=== PATIENT | female | born 1980 ===

== ENCOUNTER 2017-04-17 21:51 | Emergency (ER) | payer BC, OTHER ==
[2017-04-17 22:13] VITALS: PULSE 69; RESP 20; TEMP 97.9; O2SAT 99
[2017-04-17 22:58] VITALS: BP 118/77
--- NOTE | 2017-04-17 23:21 | C.PDOC ---
History Of Present Illness 37 year old female presents to the ER with a complaint of lower back pain since yesterday that radiates to the groin and lower abdomen. Patient reports taken tylenol and advil at home. Denies hematuria, dysuria, bladder or bowel incontinence, weakness, numbness, or trauma. Time Seen by Provider: 04/17/17 22:16 Chief Complaint (Nursing): Back Pain History Per: Patient History/Exam Limitations: no limitations Onset/Duration Of Symptoms: Days Current Symptoms Are (Timing): Still Present Quality Of Discomfort: Unable To Describe Previous Symptoms: None Associated Symptoms: None Exacerbating Factor(s): Nothing Recent travel outside of the [place]: No Past Medical History Reviewed: Historical Data, Nursing Documentation, Vital Signs Vital Signs: Last Vital Signs Temp 97.9 F 04/17/17 22:04 Pulse 69 04/17/17 22:04 Resp 20 04/17/17 22:04 BP 118/77 04/17/17 22:47 Pulse Ox 99 04/18/17 00:59 - Medical History PMH: Anemia Family History: States: Unknown Family Hx - Social History Hx Alcohol Use: No Hx Substance Use: No - Immunization History Hx Tetanus Toxoid Vaccination: No Hx Influenza Vaccination: No Hx Pneumococcal Vaccination: No Review Of Systems Constitutional: Negative for: Fever, Chills Gastrointestinal: Positive for: Abdominal Pain Genitourinary: Positive for: Other (Groin pain). Negative for: Dysuria, Incontinence, Hematuria Musculoskeletal: Positive for: Back Pain Neurological: Negative for: Weakness, Numbness Physical Exam - Physical Exam Appears: Non-toxic, Other (Morbidly obese) Skin: Normal Color, Warm, Dry Head: Atraumatic, Normacephalic Eye(s): bilateral: Normal Inspection Gastrointestinal/Abdominal: Soft, No Tenderness Back: No CVA Tenderness, No Vertebral Tenderness, Paraspinal Tenderness (Lumbar) , Straight Leg Raising (Positive at 40 degrees worse on right) Extremity: Normal ROM (x4) Neurological/Psych: Oriented x3, Normal Speech, Normal Motor, Normal Sensation Gait: Steady ED Course And Treatment O2 Sat by Pulse Oximetry: 99 (room air) Pulse Ox Interpretation: Normal Progress Note: Toradol and flexeril administered. Patient reports improvement of pain, she is ambulatory in the ER without any pain or discomfort, will discharge home with instructions to follow up with PMD or return if symptoms worsen. Disposition Counseled Patient/Family Regarding: Diagnosis, Need For Followup, Rx Given - Disposition Referrals: [facility] [Outside] Disposition: HOME/ ROUTINE Disposition Time: 23:17 Condition: STABLE Additional Instructions: Please follow up with PMD or in clinic Take meds as directed Return to ER if worse Prescriptions: Cyclobenzaprine [Cyclobenzaprine HCl] 10 mg PO BID #14 tab Naproxen [Naprosyn] 1 tab PO BID PRN #20 tab PRN Reason: Pain Instructions: Low Back Pain (DC) Forms: [email or web address] (Bengali), Work Excuse - Clinical Impression Clinical Impression: Low back pain - PA / RESIDENT DIRECTOR / Resident Statement MD/DO has reviewed & agrees with the documentation as recorded. - Scribe Statement The provider has reviewed the documentation as recorded by the Scribromie Gonzalez All medical record entries made by the Ginna were at my direction and personally dictated by me. I have reviewed the chart and agree that the record accurately reflects my personal performance of the history, physical exam, medical decision making, and the department course for this patient. I have also personally directed, reviewed, and agree with the discharge instructions and disposition.
== END 2017-04-17 23:29 | disposition home or self-care (01) ==
LOC: C.ER 21:51
DX: M54.5 Low back pain (principal)
CPT/HCPCS: 96372; 99282; J1885

== ENCOUNTER 2017-04-28 10:35 | Emergency (ER) | payer OTHER ==
[2017-04-28 10:45] VITALS: RESP 18; O2SAT 98
[2017-04-28 12:09] LABS: SQUAMOUS EPITHIAL 19 /hpf (0-5); URINE BACTERIA RARE (<OCC); URINE BILIRUBIN NEGATIVE (NEGATIVE); URINE BLOOD NEGATIVE (NEGATIVE); URINE CLARITY Hazy (Clear); URINE COLOR Yellow (YELLOW); URINE GLUCOSE (UA) NORMAL (Normal); URINE LEUKOCYTE ESTERASE 1+ Leu/uL (Negative); URINE PROTEIN NEGATIVE (NEGATIVE); URINE UROBILINOGEN NORMAL mg/dL (0.2-1.0)
--- NOTE | 2017-04-28 12:17 | C.PDOC ---
History Of Present Illness 37 year old female presents to the ER with a complaint of back pain. Patient was seen on 04/17/17 for the same complaints, she was started on Flexeril and Naproxen with improvement, however, today while she notes she went to the bathroom and the pain recurred. Denies weakness, numbness, or trauma. Time Seen by Provider: 04/28/17 11:08 Chief Complaint (Nursing): Back Pain History Per: Patient History/Exam Limitations: no limitations Onset/Duration Of Symptoms: Days Current Symptoms Are (Timing): Still Present Quality Of Discomfort: Unable To Describe Associated Symptoms: None Exacerbating Factor(s): Nothing Recent travel outside of the [place]: No Past Medical History Reviewed: Historical Data, Nursing Documentation, Vital Signs Vital Signs: Last Vital Signs Temp 97.7 F 04/28/17 10:41 Pulse 82 04/28/17 10:41 Resp 18 04/28/17 10:41 BP 131/82 04/28/17 10:41 Pulse Ox 98 04/28/17 12:23 - Medical History PMH: Anemia Family History: States: Unknown Family Hx - Social History Hx Alcohol Use: No Hx Substance Use: No - Immunization History Hx Tetanus Toxoid Vaccination: No Hx Influenza Vaccination: No Hx Pneumococcal Vaccination: No Review Of Systems Except As Marked, All Systems Reviewed And Found Negative. Musculoskeletal: Positive for: Back Pain Neurological: Negative for: Weakness, Numbness Physical Exam - Physical Exam Appears: Non-toxic, No Acute Distress Skin: Normal Color, Warm, Dry Head: Atraumatic, Normacephalic Eye(s): bilateral: Normal Inspection Back: No CVA Tenderness, No Vertebral Tenderness, No Paraspinal Tenderness Extremity: Normal ROM (x4), No Tenderness, No Deformity Neurological/Psych: Oriented x3, Normal Speech, Normal Motor, Normal Sensation Gait: Steady ED Course And Treatment O2 Sat by Pulse Oximetry: 98 (Room air) Pulse Ox Interpretation: Normal Medical Decision Making Medical Decision Making: Plan: * Urinalysis Disposition Counseled Patient/Family Regarding: Studies Performed, Diagnosis, Need For Followup, Rx Given - Disposition Referrals: YOUR,PMD [Other] Disposition: HOME/ ROUTINE Disposition Time: 12:24 Condition: IMPROVED Prescriptions: Cyclobenzaprine [Flexeril] 10 mg PO TID #15 tab Dexamethasone 12 mg PO ONCE #2 tablet Gabapentin [Neurontin] 300 mg PO TID #30 cap Instructions: Radiculopathy, Sciatica Exercises Forms: [employer] (Central African), School Excuse - Clinical Impression Clinical Impression: Sciatica - Scribe Statement The provider has reviewed the documentation as recorded by the Scribromie Gonzalez All medical record entries made by the Scribe were at my direction and personally dictated by me. I have reviewed the chart and agree that the record accurately reflects my personal performance of the history, physical exam, medical decision making, and the department course for this patient. I have also personally directed, reviewed, and agree with the discharge instructions and disposition.
[2017-04-28 12:37] VITALS: BP 126/85; PULSE 65; TEMP 98.3
== END 2017-04-28 12:37 | disposition home or self-care (01) ==
LOC: C.ER 10:35
DX: M54.30 Sciatica, unspecified side (principal)

== ENCOUNTER 2017-07-09 12:23 | Emergency (ER) | payer OTHER ==
[2017-07-09 12:38] VITALS: TEMP 98.3
[2017-07-09 13:56] LABS: BASO # 0.1 K/uL (0.0-0.2); EOS # 0.1 K/uL (0.0-0.7); EOS % 1.2 % (0.0-4.0); HEMOGLOBIN 13.2 g/dL (11.0-16.0); LYMPH # 3.1 K/uL (1.0-4.3); MEAN CELL VOLUME 80.3 fL (81.0-99.0); MEAN CORPUSCULAR HEMOGLOBIN 27.3 pg (27.0-31.0); MEAN PLATELET VOLUME 7.9 fL (7.2-11.7); MONO # 0.8 K/uL (0.0-0.8); NEUT # 5.6 K/uL (1.8-7.0); NEUT % 57.8 % (50.0-75.0); NRBC % 0.1 % (0.0-2.0); RBC 4.85 Mil/uL (3.80-5.20); RED CELL DISTRIBUTION WIDTH 15.4 % (11.5-14.5); WHITE BLOOD COUNT 9.7 K/uL (4.8-10.8)
[2017-07-09 14:01] LABS: SQUAMOUS EPITHIAL 5 /hpf (0-5); URINE BILIRUBIN NEGATIVE (NEGATIVE); URINE BLOOD NEGATIVE (NEGATIVE); URINE CLARITY Clear (Clear); URINE COLOR Yellow (YELLOW); URINE GLUCOSE (UA) NORMAL (Normal); URINE LEUKOCYTE ESTERASE NEG Leu/uL (Negative); URINE PROTEIN NEGATIVE (NEGATIVE); URINE UROBILINOGEN NORMAL mg/dL (0.2-1.0)
[2017-07-09 14:15] LABS: ALB/GLOB RATIO 1.1 (1.0-2.1); ALBUMIN 4.4 g/dL (3.5-5.0); ALT/SGPT 103 U/L (9-52); AST/SGOT 96 U/L (14-36); BLOOD UREA NITROGEN 8 mg/dL (7-17); CALCIUM 9.6 mg/dl (8.6-10.4); GFR AFRICAN-AMERICAN > 60; GFR NON-AFRICAN AMERICAN > 60; LIPASE 112 U/L (23-300)
--- NOTE | 2017-07-09 14:50 | US ---
HISTORY: abd pain COMPARISON: None. TECHNIQUE: Sonographic evaluation of the abdomen. FINDINGS: LIVER: Measures 25 cm. Significantly enlarged. Diffusely increased echogenicity of the liver parenchyma. Consistent with fatty infiltration. No mass. Smooth contour. No biliary ductal dilatation. GALLBLADDER: Cholelithiasis. No mural thickening. No pericholecystic fluid. Negative sonographic Arboleda sign. COMMON BILE DUCT: Measures 3 mm. No stones. No dilatation. PANCREAS: Unremarkable as visualized. No mass. No ductal dilatation. RIGHT KIDNEY: Measures 12.9cm. Normal echogenicity. No calculus, mass, or hydronephrosis. LEFT KIDNEY: Measures 12.5cm. Normal echogenicity. No calculus, mass, or hydronephrosis. SPLEEN: Normal in size and contour. No mass. AORTA: No aneurysmal dilatation. IVC: Unremarkable. OTHER FINDINGS: None. IMPRESSION: Cholelithiasis without evidence of cholecystitis. Hepatomegaly with fatty infiltration of the liver. No evidence of biliary obstruction.
--- NOTE | 2017-07-09 14:55 | C.PDOC ---
History Of Present Illness The patient is a 37 year old female who reports feeling nauseous, slightly dizzy and lightheaded yesterday morning. Patient had one episode of vomiting yesterday, but her symptoms resolved by the afternoon. Today, patient woke up with pain to her right upper quadrant region. She denies radiation of pain elsewhere. Patient also reports experiencing urinary frequency 4 days ago, but symptoms have since resolved. She denies fever, chills, cough, shortness of breath. She denies history of gallbladder issues and denies experiencing similar symptoms in the past. Time Seen by Provider: 07/09/17 13:19 Chief Complaint (Nursing): Abdominal Pain History Per: Patient History/Exam Limitations: no limitations Onset/Duration Of Symptoms: Hrs Current Symptoms Are (Timing): Still Present Location Of Pain/Discomfort: RUQ Radiation Of Pain To:: None Quality Of Discomfort: "Pain" Associated Symptoms: Nausea, Vomiting. denies: Fever, Chills, Urinary Symptoms Additional History Per: Patient Past Medical History Reviewed: Historical Data, Nursing Documentation, Vital Signs Vital Signs: Last Vital Signs Temp 98.3 F 07/09/17 12:34 Pulse 83 07/09/17 12:34 Resp 84 H 07/09/17 12:34 BP 119/70 07/09/17 12:34 Pulse Ox 98 07/09/17 15:11 - Medical History PMH: Anemia, Sleep Apnea Surgical History: No Surg Hx Family History: States: Unknown Family Hx - Social History Hx Alcohol Use: No Hx Substance Use: No - Immunization History Hx Tetanus Toxoid Vaccination: No Hx Influenza Vaccination: No Hx Pneumococcal Vaccination: No Review Of Systems Constitutional: Negative for: Fever, Chills Gastrointestinal: Positive for: Vomiting, Abdominal Pain (right upper quadrant ) Neurological: Positive for: Dizziness, Other (lightheadedness ) Physical Exam - Physical Exam Appears: Non-toxic, No Acute Distress, Other (morbidly obese ) Skin: Normal Color, Warm, Dry Head: Atraumatic, Normacephalic Eye(s): bilateral: Normal Inspection Oral Mucosa: Moist Neck: Supple Chest: Symmetrical, No Deformity, No Tenderness Cardiovascular: Rhythm Regular, No Murmur Respiratory: Normal Breath Sounds, No Rales, No Rhonchi, No Wheezing Gastrointestinal/Abdominal: Soft, Tenderness (mild, to right upper quadrant and epigastric regions ), No Guarding, No Rebound Extremity: Normal ROM, Capillary Refill (less than 2 seconds ) Neurological/Psych: Oriented x3, Normal Speech, Normal Cognition ED Course And Treatment - Laboratory Results Result Diagrams: 07/09/17 13:51 07/09/17 13:51 Lab Interpretation: No Acute Changes (Mildly elevated LFTs) O2 Sat by Pulse Oximetry: 98 (on RA) Pulse Ox Interpretation: Normal - CT Scan/US US abdomen Other Rad Studies (CT/US): Interpreted By Me, Read By Radiologist CT/US Interpretation: HISTORY: abd pain. COMPARISON: None. TECHNIQUE: Sonographic evaluation of the abdomen. FINDINGS: LIVER: Measures 25 cm. Significantly enlarged. Diffusely increased echogenicity of the liver parenchyma. Consistent with fatty infiltration. No mass. Smooth contour. No biliary ductal dilatation. GALLBLADDER: Cholelithiasis. No mural thickening. No pericholecystic fluid. Negative sonographic Arboleda sign. COMMON BILE DUCT : Measures 3 mm. No stones. No dilatation. PANCREAS: Unremarkable as visualized. No mass. No ductal dilatation. RIGHT KIDNEY: Measures 12.9cm. Normal echogenicity. No calculus, mass, or hydronephrosis. LEFT KIDNEY: Measures 12.5cm. Normal echogenicity. No calculus, mass, or hydronephrosis. SPLEEN: Normal in size and contour. No mass. AORTA: No aneurysmal dilatation. IVC: Unremarkable. OTHER FINDINGS: None. IMPRESSION: Cholelithiasis without evidence of cholecystitis. Hepatomegaly with fatty infiltration of the liver. No evidence of biliary obstruction. Progress Note: Bloodwork, urinalysis, US Abdomen ordered and reviewed. Reevaluation Time: 15:14 Reassessment Condition: Unchanged (Patient remains comfortable.) Disposition Counseled Patient/Family Regarding: Studies Performed, Diagnosis, Need For Followup, Rx Given - Disposition Referrals: Ramin Leonardo [Medical Doctor] - Disposition: HOME/ ROUTINE Disposition Time: 15:15 Condition: STABLE Prescriptions: Dicyclomine [Bentyl] 20 mg PO QID PRN #10 tab PRN Reason: Pain, Severe (8-10) Instructions: Gallstones Forms: [employer] (Faroese) - Clinical Impression Clinical Impression: Biliary colic - Scribe Statement The provider has reviewed the documentation as recorded by the Scribe (Dulce Maria Degroot) Provider Attestation: All medical record entries made by the Scribe were at my direction and personally dictated by me. I have reviewed the chart and agree that the record accurately reflects my personal performance of the history, physical exam, medical decision making, and the department course for this patient. I have also personally directed, reviewed, and agree with the discharge instructions and disposition.
[2017-07-09 15:33] VITALS: BP 106/64; PULSE 73; RESP 18; O2SAT 97
== END 2017-07-09 15:35 | disposition home or self-care (01) ==
LOC: C.ER 12:23
DX: K80.50 Calculus of bile duct without cholangitis or cholecystitis without obstruction (principal)

== ENCOUNTER 2017-09-11 07:43 | Inpatient (IN) | payer OTHER ==
[2017-09-03 10:18] VITALS: BMI 54.9
[2017-09-11] MEDS ORDERED: Lactated Ringer's 1,000 ML IV ONE ×3 (08:19→13:35)
[2017-09-11] MEDS ORDERED: Bupivacaine 0.25% 20 ML INJ IJ ONE (10:13)
[2017-09-11] MEDS ORDERED: ceFAZolin IV 2 gm in Dextrose 2 GM/50 ML BAG IVPB ONE (10:13)
[2017-09-11] MEDS ORDERED: ceFAZolin IV 1 gm in Dextrose 1 GM/50 ML BAG IVPB ONE (10:13)
[2017-09-11] MEDS ORDERED: Midazolam 2 MG/2 ML VIAL ONE (10:17)
[2017-09-11] MEDS ORDERED: Propofol 10 mg/ml Inj (20 ML) ONE (10:18)
[2017-09-11] MEDS ORDERED: Rocuronium 10 mg/ml (5 ml) ONE (10:19)
[2017-09-11] MEDS ORDERED: Neostigmine Methylsulfate 3mg/3ml Syringe IV ONE (12:47)
--- NOTE | 2017-09-11 13:10 | PCM.OP ---
Operative Report - Operative Report Date of Surgery/Procedure: 09/11/17 Time of Surgery/Procedure: 10:00 Surgeon: Asim Gis Professor: Ruslan Anesthesia/Sedation: GETA Pre-Operative Diagnosis: Morbid Obesity, cholelithiasis, elevated LFTs Post-Operative Diagnosis: Same plus hiatal hernia Indication for Surgery: Morbid obesity and symptomatic gallstones Operative Findings: Hiatal hernia, gallstones, negative leak test Procedure/Operation Description: Laparoscopic sleeve gastrectomy, hiatal hernia repair, cholecystectomy, liver biopsy Estimated Blood Loss: 20ml Complications: None Specimen: Portion of stomach, gallbladder, liver biopsy Discharge & Condition: Stable
[2017-09-11] MEDS: HYDROmorphone 0.5 mg/0.5 ml ISec IVP PRN ×3 (13:53→16:51)
[2017-09-11] MEDS ORDERED: Dexamethasone 4 mg/1 ml IVPB ONE (14:30)
[2017-09-11 16:39] VITALS: RESP 20
[2017-09-11] MEDS: Lactated Ringer's 1,000 ML IV SCH ×3 (16:52→21:54)
[2017-09-12] MEDS: Lactated Ringer's 1,000 ML IV SCH ×3 (02:15→12:11)
[2017-09-12 07:45] LABS: BASO % 0.3 % (0.0-2.0); HEMOGLOBIN 12.1 g/dL (11.0-16.0); LYMPH # 2.2 K/uL (1.0-4.3); LYMPH % 18.1 % (20.0-40.0); MEAN CELL VOLUME 81.1 fL (81.0-99.0); MEAN CORPUSCULAR HEMOGLOBIN 27.5 pg (27.0-31.0); MEAN PLATELET VOLUME 8.3 fL (7.2-11.7); MONO # 1.1 K/uL (0.0-0.8); MONO % 9.3 % (0.0-10.0); NEUT # 8.7 K/uL (1.8-7.0); NEUT % 72.3 % (50.0-75.0); RBC 4.39 Mil/uL (3.80-5.20); RED CELL DISTRIBUTION WIDTH 14.5 % (11.5-14.5)
[2017-09-12 08:01] LABS: ALB/GLOB RATIO 1.2 (1.0-2.1); ALBUMIN 3.5 g/dL (3.5-5.0); ALT/SGPT 76 U/L (9-52); AST/SGOT 65 U/L (14-36); BLOOD UREA NITROGEN 10 mg/dL (7-17); CALCIUM 8.5 mg/dl (8.6-10.4); GFR AFRICAN-AMERICAN > 60; GFR NON-AFRICAN AMERICAN > 60
[2017-09-12] MEDS ORDERED: Barium Sulfate for Susp 96% w/w 176g Bottle PR ONE (08:13)
[2017-09-12] MEDS ORDERED: Iohexol 240 200 ML ONE (08:13)
[2017-09-12 08:55] VITALS: BP 124/77; TEMP 98.1; O2SAT 99
[2017-09-12] MEDS ORDERED: Enoxaparin 40 mg Syringe SC SCH (10:00)
--- NOTE | 2017-09-12 10:05 | OP ---
Copied To: Veronica Dailey MD Attending MD: Veronica Dailey MD PROCEDURE DATE: 09/11/2017 SURGEON: Veronica Dailey MD ETCHER APPRENTICE: Carl Mercer MD PREOPERATIVE DIAGNOSES: Morbid obesity, elevated liver function tests, and cholelithiasis. POSTOPERATIVE DIAGNOSES: Morbid obesity, elevated liver function tests, cholelithiasis, and hiatal hernia. PROCEDURES PERFORMED: Laparoscopic sleeve gastrectomy, upper endoscopy, transversus abdominis plane block, hiatal hernia repair, cholecystectomy, and liver biopsy. TYPE OF ANESTHESIA: General. ESTIMATED BLOOD LOSS: Approximately 20 mL. SPECIMENS: Portion of stomach, liver biopsy, and gallbladder. COMPLICATIONS: There were no complications. INDICATION: This is a 37-year-old female with morbid obesity who meets the NIH criteria for bariatric surgery. She also has history of RUQ pain and an ultrasound showing gallbladder stones. PROCEDURE: The patient was brought to the operating room and placed in supine position on the operating room table. General endotracheal anesthesia was induced by the anesthesia team. Precautions were taken to pad the patient well using gel padding of the back, feet and arms to prevent postoperative pain. The patient was prepped and draped in the usual sterile fashion. The printing bindery assistant placed a Veress needle in the left upper quadrant below the costal margin to establish pneumoperitoneum to 15 mmHg. A 12 millimeter Optiview port along with zero-degree laparoscope were inserted in the midline superior to the umbilicus with no evidence of injury upon entering. Next, the scope was changed to 45 degrees and the Veress needle was removed under vision. Under laparoscopic guidance, a transversus abdominis plane block was performed by injecting 30 cubic centimeters of 0.25% Marcaine into multiple sites along the right flank. The solution was injected into the plane between the internal oblique and the transversus abdominis muscles to aid in postoperative analgesia. This procedure was repeated on the left flank for maximum efficacy. A 15 millimeter trocar was placed in the right midclavicular line above the umbilicus. Additionally, two 5 millimeter trocars were placed in the right and left flank below the costal margin. All trocars were placed under direct vision. A liver retractor was (Tho) was inserted through a separate stab incision 1 centimeter below the xiphoid process and was attached to a retracting device secured to the left side of the table. The entire procedure was performed laparoscopically. The primary surgeon operated from the right side of the patient and the printing bindery assistant operated from the left side of the patient. At this point it was noted that there was a moderate sized hiatal hernia that required repair. Repair of this defect is essential during the sleeve gastrectomy in order to reduce the risk of proximal esophageal migration into the chest as well as minimize the potential for postoperative reflux. First, the angle of His was bluntly dissected with loupe graspers to free up the fundus. Dissection of the hiatus began by incising the gastrohepatic ligament using the Harmonic Scalpel and isolating the right carlos of the diaphragm. The esophagus was bluntly dissected off of the carlos with loupe graspers. The dissection proceeded posteriorly until the left carlos was similarly isolated. Care was taken to avoid injury to the spleen, vagus nerve and esophagus throughout. The stomach was retracted anteriorly to allow for adequate exposure of the entire posterior aspect of the hiatus. Next, we performed a diaphragmatic reapproximation and cruroplasty by placement of multiple interrupted 2-0 Ethibond pledgeted sutures between the posterior right and left crura. This was repeated anteriorly to approximate the right and the left anterior crura. This procedure requires additional time and is performed as an adjunct to the sleeve gastrectomy whenever a defect in the hiatus is detected. The lesser sac was entered by first dividing the gastrocolic ligament along the midpoint of the greater curvature of the stomach with a harmonic scalpel. The dissection was performed close to the stomach to avoid the gastroepiploic artery. Dissection proceeded proximally towards the angle of His. The printing bindery assistant dissected out and ligated the short gastric arteries with the harmonic scalpel. Care was taken to avoid injury to the spleen. We then returned to the point where the dissection began more distally on the greater curvature. The printing bindery assistant used the harmonic scalpel and continued distally along the greater curvature to approximately 4-6 centimeters from the pylorus. At this point, a 40 Russian bougie was inserted by the anesthesia team and was aligned medially and passed under vision to the region of the pylorus. The printing bindery assistant grasped the greater curvature of the stomach with a loop grasper and retracted laterally. The sleeve gastrectomy was performed using sequential firings of a 60 millimeter EndoGIA stapler ([place]) bolstered with Seamguard. For the initial two firings, a green load was used where the stomach tissue was thicker. The second firing utilized a gold load. The remaining firings were done using a blue load. Care was taken to avoid narrowing the distal aspect of the sleeve. The anterior and posterior vagus nerves were identified and preserved throughout their course. Sequential firings of the stapler continued up to the angle of His. Care was taken to ensure equal tension along the entire staple line to prevent kinking of the sleeve. The entire staple line was reinforced with Seamguard buttressing material to help reduce the chance of bleeding or a leak. An upper endoscopy was performed (to be dictated separately) in order to evaluate the gastric mucosa as well as perform a leak test. The distal stomach was occluded and the upper abdomen was filled with saline solution in order to submerge the entire staple line. Air was insufflated and no bubbles were visualized. The saline was suctioned off and the scope removed. The resected stomach was placed in a large Endo Catch bag for later removal. The area was carefully inspected and hemostasis ensured. The liver retractor and all ports were removed under vision and pneumoperitoneum evacuated. The specimen was removed through the 15 millimeter port site and was sent off the field. The fascia of the 15 millimeter port site was closed using #0 Vicryl interrupted suture on the Endoclose device. The skin on all port sites was closed with #4-0 Monocryl subcuticular sutures followed by Dermabond for dressing. All sponge and instrument counts were correct at the end of the procedure. The patient tolerated the procedure well, was extubated in the operating room and was transferred to the recovery room in stable condition. The patient had elevated liver function tests preoperatively. Therefore, a liver biopsy was warranted. The biopsy was obtained with a Adelfo-Cut needle. Hemostasis was achieved with electrocautery. Veronica Dailey MD
[2017-09-12] MEDS: HYDROmorphone 0.5 mg/0.5 ml ISec IVP PRN (12:29)
[2017-09-12 13:08] VITALS: PULSE 58
--- NOTE | 2017-09-12 14:25 | RAD ---
Date of service: 09/12/2017 PROCEDURE: Limited upper GI examination P HISTORY: s/p gastric sleeve, rule out leak COMPARISON: None TECHNIQUE: Single-contrast upper GI examination was done with 75 mL Omnipaque followed by 50 mL of barium. FINDINGS: There was smooth passage of contrast from the esophagus into the stomach. There is normal postsurgical appearance of the stomach with age elongated gastric pouch and normal appearance of the gastric antrum. Multiple surgical clips are noted along greater curvature of the stomach. No evidence of extraluminal contrast to suggest free of contained leak. The total fluoroscopic time was 1.9 minutes. IMPRESSION: Status post gastric sleeve surgery, normal appearance of the gastric pouch without evidence for gastric leak.
== END 2017-09-12 15:45 | disposition home or self-care (01) | DRG 620 ==
LOC: C.9S 07:43 → C.6T 16:37
PROVIDERS: ADMIT Surgery; ATTEND Surgery
PROC: 0BQT4ZZ Repair Diaphragm, Percutaneous Endoscopic Approach (ICD-10-PCS; 2017-09-11)
PROC: 0FB04ZX Excision of Liver, Percutaneous Endoscopic Approach, Diagnostic (ICD-10-PCS; 2017-09-11)
PROC: 0DJ08ZZ Inspection of Upper Intestinal Tract, Via Natural or Artificial Opening Endoscopic (ICD-10-PCS; 2017-09-11)
PROC: 0DB64Z3 Excision of Stomach, Percutaneous Endoscopic Approach, Vertical (ICD-10-PCS; principal; 2017-09-11 09:30)
PROC: 0FT44ZZ Resection of Gallbladder, Percutaneous Endoscopic Approach (ICD-10-PCS; 2017-09-11 09:30)
DX: E66.01 Morbid (severe) obesity due to excess calories (principal); K80.10 Calculus of gallbladder with chronic cholecystitis without obstruction; Z68.43 Body mass index [BMI] 50.0-59.9, adult; K44.9 Diaphragmatic hernia without obstruction or gangrene; K75.81 Nonalcoholic steatohepatitis (NASH)